=== PATIENT | male | born 1965 | race American Indian/Alaskan Native ===

== ENCOUNTER 2017-12-10 12:13 | Outpatient (CLI) | payer OTHER ==
--- NOTE | 2017-12-10 13:17 | XRay Report ---
BILATERAL KNEES, STANDING, 2 VIEWS History: Bilateral knee pain. Findings: Normal bone mineralization. The medial and lateral compartments are within normal limits. Minor retropatellar spurring is noted in both knees. The soft tissues are unremarkable. Impression: Minimal osteoarthritis.
== END 2017-12-10 12:14 | disposition home or self-care (01) ==
LOC: XRAY 12:13
PROVIDERS: ATTEND Orthopaedic Surgery
DX: M17.0 Bilateral primary osteoarthritis of knee (principal)